=== PATIENT | male | born 2000 | race Asian ===

== ENCOUNTER 2024-03-01 10:10 | Emergency (ER) | payer BC ==
[~2024-03-01] VITALS: Ht 162.6 cm; Wt 61.4 kg
[2024-03-01 10:14] VITALS: TEMP 97.7
[2024-03-01] MEDS ORDERED: NS 1,000 ML IV ONE (10:30)
[2024-03-01] MEDS ORDERED: Dicyclomine 10 MG/ML 2 ML VIAL IM ONE (10:45)
[2024-03-01 11:35] LABS: BASO % 0.2 % (0.0-2.0); EOS # 0.1 K/mm3 (0.0-0.7); EOS % 2.1 % (0.0-4.0); GRAN # 3.7 K/mm3 (1.4-6.5); GRAN % 64.6 % (42.2-75.2); HEMATOCRIT 42.3 % (42.0-52.0); HEMOGLOBIN 14.6 g/dl (13.5-18.0); LYMPH # 1.6 K/mm3 (1.2-3.4); LYMPH % 27.1 % (20.0-51.0); MEAN CELL VOLUME 83 fl (80.0-100.0); MEAN CORPUSCULAR HEMOGLOBIN 29 pg (27-31); MEAN CORPUSCULAR HGB CONC 35 g/dl (33.0-37.0); MEAN PLATELET VOLUME 9.6 fl (7.4-10.4); MONO # 0.3 K/mm3 (0.1-0.6); MONO % 5.7 % (1.7-9.3); PLATELET COUNT 304 K/mm3 (130-400); RED BLOOD COUNT 5.09 M/mm3 (4.20-5.60)
[2024-03-01 12:01] LABS: ALBUMIN 4.3 g/dL (3.5-5.0); BILIRUBIN,TOTAL 0.7 mg/dL (0.2-1.2); CALCIUM 9.3 mg/dL (8.4-10.2); CREATININE, serum 0.82 mg/dL (0.72-1.25); POTASSIUM 4.3 mEq/L (3.5-4.5); TOTAL PROTEIN 7.1 g/dl (6.2-8.1)
[2024-03-01 12:56] LABS: URINE APPEARANCE CLEAR (CLEAR/HAZY); URINE BLOOD NEGATIVE (NEGATIVE); URINE COLOR YELLOW (YELLOW); URINE GLUCOSE NEGATIVE (NEGATIVE); URINE KETONE NEGATIVE (NEGATIVE); URINE NITRATE NEGATIVE (NEGATIVE); URINE PROTEIN(semi-quant) NEGATIVE (NEGATIVE); URINE UROBILINOGEN 0.2 E.U/dL (0.2-1.0)
[2024-03-01 12:59] LABS: COLLECTION METHOD CLEAN CATCH
[2024-03-01] MEDS ORDERED: BENTYL 10MG10 MG/CAP PO (13:28)
[2024-03-01 13:32] VITALS: BP 120/77; PULSE 58
== END 2024-03-01 13:46 | disposition home or self-care (01) ==
LOC: COL.ER 10:10
PROVIDERS: Physician Assistant
DX: R10.84 Generalized abdominal pain (principal)
CPT/HCPCS: J0500; J7030